=== PATIENT | female | born 1985 | race Hispanic/Latino ===

== ENCOUNTER 2018-12-31 14:06 | Inpatient (IN) | payer MEDICAID ==
[2018-12-31 15:17] LABS: BASO % 0.2 % (0.0-2.0); EOS % 0.3 % (0.0-4.0); HEMOGLOBIN 10.8 g/dL (11.0-16.0); LYMPH # 1.9 K/uL (1.0-4.3); LYMPH % 17.9 % (20.0-40.0); MEAN CELL VOLUME 84.1 fL (81.0-99.0); MEAN CORPUSCULAR HGB CONC 33.4 g/dL (33.0-37.0); MEAN PLATELET VOLUME 7.5 fL (7.2-11.7); MONO # 0.7 K/uL (0.0-0.8); MONO % 6.8 % (0.0-10.0); NEUT # 8.1 K/uL (1.8-7.0); NEUT % 74.8 % (50.0-75.0); RBC 3.84 Mil/uL (3.80-5.20); RED CELL DISTRIBUTION WIDTH 15.1 % (11.5-14.5); WHITE BLOOD COUNT 10.9 K/uL (4.8-10.8)
[2018-12-31 15:19] LABS: HCG,QUALITATIVE URINE NEGATIVE (NEGATIVE)
[2018-12-31 15:30] LABS: ALB/GLOB RATIO 1.1 (1.0-2.1); ALBUMIN 3.9 g/dL (3.5-5.0); ALT/SGPT 16 U/L (9-52); AST/SGOT 29 U/L (14-36); BLOOD UREA NITROGEN 22 mg/dL (7-17); CALCIUM 8.6 mg/dl (8.6-10.4); GFR NON-AFRICAN AMERICAN > 60
[2018-12-31 15:52] LABS: SQUAMOUS EPITHIAL < 1 /hpf (0-5); URINE BACTERIA RARE (<OCC)
[2018-12-31 15:53] LABS: URINE BILIRUBIN NEGATIVE (NEGATIVE); URINE CLARITY Clear (Clear); URINE COLOR YELLOW (YELLOW); URINE GLUCOSE (UA) NEGATIVE (Normal)
[2018-12-31 15:54] LABS: URINE BLOOD NEGATIVE (NEGATIVE); URINE LEUKOCYTE ESTERASE Negative Leu/uL (Negative); URINE PROTEIN NEGATIVE (NEGATIVE); URINE UROBILINOGEN 0.2 mg/dL (0.2-1.0)
[2018-12-31 15:56] LABS: BARBITURATES, UR NEGATIVE (NEGATIVE); BENZODIAZEPINES, UR NEGATIVE (NEGATIVE); PHENCYCLIDINE, UR NEGATIVE (NEGATIVE)
--- NOTE | 2018-12-31 16:11 | C.PDOC ---
History Of Present Illness 33 year old female presents to ED with request for detox from heroin and fentanyl.Patient states that she last used this morning. Patient has no medical complaints. Time Seen by Provider: 12/31/18 14:13 Chief Complaint (Nursing): Substance Abuse History Per: Patient History/Exam Limitations: no limitations Modifying Factor(s): Other (heroin and fentanyl) Additional History Per: Patient Past Medical History Reviewed: Historical Data, Nursing Documentation, Vital Signs Vital Signs: Last Vital Signs Temp 98 F 12/31/18 14:09 Pulse 95 H 12/31/18 14:09 Resp 16 12/31/18 14:09 BP 157/97 H 12/31/18 14:09 Pulse Ox 99 12/31/18 14:09 - Medical History PMH: No Chronic Diseases Surgical History: No Surg Hx Family History: States: Unknown Family Hx - Social History Hx Alcohol Use: No Hx Substance Use: Yes - Immunization History Hx Tetanus Toxoid Vaccination: No Hx Influenza Vaccination: No Hx Pneumococcal Vaccination: No Review Of Systems Constitutional: Negative for: Fever, Chills, Weakness Eyes: Negative for: Redness Cardiovascular: Negative for: Chest Pain, Palpitations Respiratory: Negative for: Cough, Shortness of Breath Gastrointestinal: Negative for: Nausea, Vomiting, Diarrhea Genitourinary: Negative for: Dysuria Musculoskeletal: Negative for: Back Pain Neurological: Negative for: Weakness, Numbness, Dizziness Physical Exam - Physical Exam Appears: Well, Non-toxic, No Acute Distress Skin: Normal Color, Warm, Dry Head: Atraumatic, Normacephalic Eye(s): bilateral: PERRL, EOMI Neck: Normal ROM, Supple Chest: Symmetrical, No Deformity Respiratory: No Decreased Breath Sounds Gastrointestinal/Abdominal: Soft, No Tenderness Extremity: Capillary Refill (<2 seconds) Extremity: Bilateral: Atraumatic, Normal Color And Temperature Pulses: Left Radial: Normal, Right Radial: Normal Neurological/Psych: Oriented x3, Normal Speech, Normal Cognition ED Course And Treatment - Laboratory Results Result Diagrams: 12/31/18 15:08 12/31/18 15:08 Lab Results: Total Bilirubin 0.2 mg/dL (0.2-1.3) 12/31/18 15:08 AST 29 U/L (14-36) 12/31/18 15:08 ALT 16 U/L (9-52) 12/31/18 15:08 Alkaline Phosphatase 86 U/L (38-126) 12/31/18 15:08 Total Protein 7.4 g/dL (6.3-8.3) 12/31/18 15:08 Albumin 3.9 g/dL (3.5-5.0) 12/31/18 15:08 Globulin 3.5 gm/dL (2.2-3.9) 12/31/18 15:08 Albumin/Globulin Ratio 1.1 (1.0-2.1) 12/31/18 15:08 Urine Color Yellow (YELLOW) 12/31/18 15:08 Urine Clarity Clear (Clear) 12/31/18 15:08 Urine pH 6.0 (5.0-8.0) 12/31/18 15:08 Ur Specific Crowder > 1.030 (1.003-1.030) H 12/31/18 15:08 Urine Protein Negative mg/dL (NEGATIVE) 12/31/18 15:08 Urine Glucose (UA) Negative mg/dL (Normal) 12/31/18 15:08 Urine Ketones Negative mg/dL (NEGATIVE) 12/31/18 15:08 Urine Blood Negative (NEGATIVE) 12/31/18 15:08 Urine Nitrate Negative (NEGATIVE) 12/31/18 15:08 Urine Bilirubin Negative (NEGATIVE) 12/31/18 15:08 Urine Urobilinogen 0.2 mg/dL (0.2-1.0) 12/31/18 15:08 Ur Leukocyte Esterase Negative Geoffrey/uL (Negative) 12/31/18 15:08 Urine WBC (Auto) 1 /hpf (0-5) 12/31/18 15:08 Urine RBC (Auto) 1 /hpf (0-3) 12/31/18 15:08 Ur Squamous Epith Cells < 1 /hpf (0-5) 12/31/18 15:08 Urine Bacteria Rare (<OCC) 12/31/18 15:08 Urine HCG, Qual Negative (NEGATIVE) 12/31/18 15:08 Urine HCG, Qual Negative (NEGATIVE) 12/31/18 15:08 O2 Sat by Pulse Oximetry: 99 (RA) Progress Note: Labs ordered. Pre-screening was done by mend worker. Patient is medically cleared and was accepted by to detox. Disposition - Disposition Disposition: HOSPITALIZED Disposition Time: 16:53 Condition: STABLE Forms: [facility] (Georgian) - Clinical Impression Clinical Impression: Drug dependence - PA / SAW FILER / Resident Statement MD/DO has reviewed & agrees with the documentation as recorded. (May Han) - Scribe Statement The provider has reviewed the documentation as recorded by the Scribe (May Han) All medical record entries made by the Scribe were at my direction and p ersonally dictated by me. I have reviewed the chart and agree that the record accurately reflects my personal performance of the history, physical exam, medical decision making, and the department course for this patient. I have also personally directed, reviewed, and agree with the discharge instructions and disposition. Decision To Admit - Pt Status Changed To: Hospital Disposition Of: Inpatient - Admit Certification Admit to Inpatient:: After my assessment, the patient will require hospitalization for at least two midnights. This is because of the severity of symptoms shown, intensity of services needed, and/or the medical risk in this patient being treated as an outpatient. - InPatient: Physician Admission Certification: I certify that this patient requires 2 or more midnights of care for the following reason:: Patient will need more than 2 days of hospitalization in Detox unit. - . Bed Request Type: Detox Admitting Physician: Rigoberto Hoffman Patient Diagnosis: Drug dependence
[2018-12-31 16:14] LABS: OPIATES, UR POSITIVE (NEGATIVE)
--- NOTE | 2018-12-31 18:24 | PCM.BM ---
<Luz Owens - Last Filed: 12/31/18 18:23> Treatment Plan Problems - Problems identified on initial assessmt Denial Date Initiated: 12/31/18 Time Initiated: 18:23 Assessment reference: NA Status: Active Defensive Coping Date Initiated: 12/31/18 Time Initiated: 18:23 Assessment reference: NA Status: Active Low motivation to change Date Initiated: 12/31/18 Time Initiated: 18:23 Assessment reference: NA Status: Active Treatment assets and liabiliti Patient Assests: ADL independent, negotiates basic needs, cognitively intact Patient Liabilities: substance abuse - Milieu Protocol Maintain good personal hygiene: daily Encourage regular showers, daily Remind patient to perform daily oral care, daily Assist patient to perform ADL's Conduct patient checks and document Observation sheet: Q15 minutes Maintain personal safety: every shift Educate patient to report safety concerns to staff, every shift Monitor environment for contraband/sharps Medication safety: Monitor for expected outcome, potential side effects: every shift, Assess barriers to learning: every shift, Assess readiness for medication education: every shift <Rigoberto Hoffman - Last Filed: 01/02/19 13:06> - Diagnosis (1) Opioid use disorder, severe, dependence Status: Acute Interventions: 01/02/19 13:07 * Assess 7x/week regarding severity of withdrawal * Educate regarding risks, benefits, side effects and alternatives of medications * Use Motivational Interviewing for abstinence * Use CBT for relapse prevention * Medication management for withdrawal symptoms * Encourage medication assisted treatment * <Milagro Uriostegui - Last Filed: 01/03/19 15:40> Family Contact Family involvement: Famliy/SO not involved - Goals for Treatment Patient goals for treatment: Complete detox and apply for short-term rehab program. Discharge/Continuing Care - Education Needs Education Needs: Patient Medication, Patient Diagnosis/Disease Process, Patient Coping Skills, Patient Anger Management skills, Patient Placement options, Patient Community resources, Patient Other ([facility] case involvement) - Discharge Discharge Criteria: No longer exhibiting s/s of withdrawal, Reduction of target symptoms Discharge to:: Home, With Family - Treatment Team Participation Patient/Family/SO Statement: 01/03/19 15:40 "I have to go to a 28-day program..." Discussed with Family/SO: No Was Patient/Family/SO present at Treatment Team Meeting: Yes
--- NOTE | 2019-01-01 13:29 | PCM.PSYCH ---
Initial Psychiatric Evaluation - Initial Psychiatric Evaluation Type of Admission: Voluntary Legal Status: Capacity Chief Complaint (in patient's own words): "Not good" History of Present Illness and Precipitating Events: Patient is a 33 year old female that is single, has no children, currently living with her father in a 2 person house, and hasn't worked for the last 4 years. She presented to the [facility] ED on 12/31 and was admitted to the [facility] detox unit for heroin and fentanyl detox. On examination, patient appears anxious but is open to questioning. She is currently feeling symptoms of withdrawal and could not sleep, commenting that she feels chills and has restless legs. She injects approximately 50 bags of heroin mixed with fentanyl daily for the last 4 years, with her longest period of sobriety being a year long in 2018. Patient also uses two 75mg fentanyl patches daily for the last two years. She also bought approximately 100mg of methadone off the street and used during the previous week. She last used both heroin and fentanyl on 12/31 prior to her admission to [facility]. She has previously been to detox once before where she was put on a codeine taper and has been placed on suboxone in the past. She has been to a rehabilitation center at [place] in [place] a little over a year ago. Patient denies alcohol use and smokes one pack per day for the last 5 years. He denies suicidal ideations, homicidal ideations, auditory hallucinations, and visual hallucinations. PMHx: Denies PsychHx: Depressed and anxious but not severe FMHx: Denies Medications: Clonidine, gabapentin 800 mg Allergies: NKDA Current Medications: Active Medications Generic Name Dose Route Start Last Admin Trade Name Jovanny PRN Reason Stop Dose Admin Clonidine HCl 0.1 mg 12/31/18 17:27 01/01/19 10:28 Catapres PO 0.1 mg Q6 PRN Administration opiate withdrawal Hydroxyzine HCl 50 mg 12/31/18 17:28 01/01/19 00:26 Atarax PO 50 mg Q6 PRN Administration Anxiety Methadone HCl 20 mg 01/01/19 10:00 01/01/19 09:17 Methadone PO 01/05/19 09:59 20 mg Q24H THERON Administration Taper Nicotine 1 patch 12/31/18 17:30 01/01/19 09:17 Nicoderm Cq TD 1 patch DAILY THERON Administration Trazodone HCl 50 mg 01/01/19 00:22 01/01/19 00:26 Desyrel PO 50 mg HS PRN Administration Insomnia Past Psychiatric History - Past Psychiatric History Pertinent Medical Hx (Current Medical&Sleep Prob, Allergies): Allergies Allergy/AdvReac Type Severity Reaction Status Date / Time No Known Allergies Allergy Verified 12/31/18 14:11 No Known Home Med 12/31/18 Review of Systems - Neurological Neurological: UNREMARKABLE - Psychiatric Psychiatric: Abnormal Sleep Pattern, Anhedonia, Anxiety, Change in Appetite, Depression, Difficulty Concentrating. absent: Homicidal Ideation, Suicidal Ideation Mental Status Examination - Personal Presentation Personal Presentation: Looks stated age - Affect Affect: Constricted - Motor Activity Motor Activity: Calm - Reliability in Providing Information Reliability in Providing Information: Good - Speech Speech: Organized - Mood Mood: Depressed, Anxious - Formal Thought Process Formal Thought Process: No Impairment - Cognitive Functions Orientation: Person, Place, Situation, Time Sensorium: Alert Attention/Concentration: Attentive Estimate of Intelligence: Average Judgement: Intact, as evidence by: Insight regarding need for hospitalization Memory: Recent intact, as evidence by: Ability to recall events of the day, Remote intact, as evidenced by: Abilit to recall sig. life events - Risk Risk: Withdrawal, Diminished functioning - Strength & Assets Inventory Strength & Assets Inventory: Cooperative - Limitations Limitations: Other DSM 5 DX - DSM 5 DSM 5 Diagnosis: Opioid withdrawal opioid use d/o - severe Depression, unspecified Cocaine use d/o - severe - Recommended/Plan of Treatment Treatment Recommendations and Plan of Treatment: Taper with Methadone Gabapentin for augmentation As needed medications All risks, benefits and alternatives of the meds discussed, and the pt agreed and understood. Attend groups and activities Supportive therapy and psychoeducation MT for abstinence CBT for relapse prevention Encourage MAT Refer to rehab or IOP, and self-help groups Teach healthy lifestyle methods, i.e. diet, exercise, meditation Smoking cessation with MT Nicotine patch if needed 35 min Projected ELOS: 5 days Prognosis: good w treatment - Smoking Cessation Smoking Cessation Initiated: Yes
[2019-01-02] MEDS ORDERED: Aluminum Hydroxide/Magnesium Hydroxide Susp (30 mL) PO PRN (11:57)
--- NOTE | 2019-01-02 13:06 | PCM.PYCHPN ---
Psychiatric Progress Note - Psychiatric Progress Note Patient seen today, length of contact: 17 min Patient Chief Complaint: "I am withdrawing bad" Problems Identified/Issues Discussed: The pt is seen, chart reviewed, case discussed with staff. Support and psychoeducation given, CBT and WI used briefly Still has wdw symptoms and uses clonidine a lot - risks discussed Additional methaodne given, as well as lorazepam and baclofen (rrefused flexeril) She is an AMA risk She needs more time to [facility] detox No SEs from medications, risks discussed. After care discussed Medication Change: Yes (detox changes daily) Medical Record Reviewed: Yes Mental Status Examination - Cognitive Function Orientation: Person, Place, Situation, Time Memory: Impaired Attention: Poor Concentration: Poor Association: WNL Fund of Knowledge: WNL - Mood Mood: Depressed, Anxious - Affect Affect: Constricted - Speech Speech: Appropriate - Formal Thought Process Formal Thought Process: No Impairment - Suicidal Ideation Suicidal Ideation: No - Homicidal Ideation Homicidal Ideation: No Goal/Treatment Plan - Goal/Treatment Plan Need for Continued Stay: Discharge may exacerbated symptoms, Severe functional impairment Progress Toward Problem(s) and Goals/Treatment Plan: Taper with Methadone - dose adjusted Add baclofen, lorazepam, increase clonidine Gabapentin for augmentation As needed medications All risks, benefits and alternatives of the meds discussed, and the pt agreed and understood. Attend groups and activities Supportive therapy and psychoeducation WI for abstinence CBT for relapse prevention Encourage MAT Refer to rehab or IOP, and self-help groups Teach healthy lifestyle methods, i.e. diet, exercise, meditation Smoking cessation with [place] Nicotine patch if needed Estimated Date of D/C: 01/05/19
[2019-01-03 11:19] VITALS: RESP 18
--- NOTE | 2019-01-03 14:32 | PCM.PYCHPN ---
Psychiatric Progress Note - Psychiatric Progress Note Patient seen today, length of contact: 15 min Patient Chief Complaint: "I am withdrawing bad" Problems Identified/Issues Discussed: The pt is seen, chart reviewed, case discussed with staff. Support and psychoeducation given, CBT and GA used briefly Still has wdw symptoms and uses clonidine a lot - risks discussed Additional methaodne given, as well as lorazepam and baclofen (rrefused flexeril) She is an AMA risk She needs more time to [facility] detox No SEs from medications, risks discussed. After care discussed Medication Change: Yes (detox changes daily) Medical Record Reviewed: Yes Mental Status Examination - Cognitive Function Orientation: Person, Place, Situation, Time Memory: Impaired Attention: Poor Concentration: Poor Association: WNL Fund of Knowledge: WNL - Mood Mood: Depressed, Anxious - Affect Affect: Constricted - Speech Speech: Appropriate - Formal Thought Process Formal Thought Process: No Impairment - Suicidal Ideation Suicidal Ideation: No - Homicidal Ideation Homicidal Ideation: No Goal/Treatment Plan - Goal/Treatment Plan Need for Continued Stay: Discharge may exacerbated symptoms, Severe functional impairment Progress Toward Problem(s) and Goals/Treatment Plan: Taper with Methadone - dose adjusted Add baclofen, lorazepam, increase clonidine Gabapentin for augmentation As needed medications All risks, benefits and alternatives of the meds discussed, and the pt agreed and understood. Attend groups and activities Supportive therapy and psychoeducation GA for abstinence CBT for relapse prevention Encourage MAT Refer to rehab or IOP, and self-help groups Teach healthy lifestyle methods, i.e. diet, exercise, meditation Smoking cessation with GA Nicotine patch if needed Estimated Date of D/C: 01/05/19
[2019-01-03 21:41] VITALS: PULSE 89; TEMP 98.6; O2SAT 97
[2019-01-03 22:34] VITALS: BP 105/65
--- NOTE | 2019-01-04 21:29 | PCM.PYCHDC ---
Mental Status Examination - Mental Status Examination Orientation: Person Discharge Summary - Discharge Note Consultations:: List each consultation separately and include: 1. Reason for request. 2. Findings. 3. Follow-up Summary of Hospital Course include:: 1. Description of specific treatment plan utilized for patients during their course of treatmen. 2. Summarize the time- course for resolution of acute symptoms and/or regressed behaviors. 3. Describe issues identified and worked on during hospitalization. 4. Describe medication utilized. 5. Describe medical problems identified and treated. 6. Reassessment of suicide risk Summary of Hospital Course: Patient is a 33 year old female that is single, has no children, currently living with her father in a 2 person house, and hasn't worked for the last 4 years. She presented to the [facility] ED on 12/31 and was admitted to the [facility] detox unit for heroin and fentanyl detox. On examination, patient appears anxious but is o pen to questioning. She is currently feeling symptoms of withdrawal and could not sleep, commenting that she feels chills and has restless legs. She injects approximately 50 bags of heroin mixed with fentanyl daily for the last 4 years, with her longest period of sobriety being a year long in 2018. Patient also uses two 75mg fentanyl patches daily for the last two years. She also bought approximately 100mg of methadone off the street and used during the previous week. She last used both heroin and fentanyl on 12/31 prior to her admission to [facility]. She has previously been to detox once before where she was put on a codeine taper and has been placed on suboxone in the past. She has been to a rehabilitation center at [place] in [place] a little over a year ago. Patient denies alcohol use and smokes one pack per day for the last 5 years. He denies suicidal ideations, homicidal ideations, auditory hallucinations, and visual hallucinations. PMHx: Denies PsychHx: Depressed and anxious but not severe FMHx: Denies Medications: Clonidine, gabapentin 800 mg Allergies: NKDA - Diagnosis (1) Opioid use disorder, severe, dependence Status: Acute - Final Diagnosis (DSM 5) Condition upon Discharge: STABLE Disposition: AGAINST MEDICAL ADVICE Follow-up Treatment Plan: Taper with Methadone - dose adjusted Add baclofen, lorazepam, increase clonidine Gabapentin for augmentation As needed medications All risks, benefits and alternatives of the meds discussed, and the pt agreed and understood. Attend groups and activities Supportive therapy and psychoeducation [place] for abstinence CBT for relapse prevention Encourage MAT Refer to rehab or IOP, and self-help groups Teach healthy lifestyle methods, i.e. diet, exercise, meditation Smoking cessation with [place] Nicotine patch if needed
== END 2019-01-03 22:40 | disposition left against medical advice (07) | DRG 743 ==
LOC: C.ER 14:06 → C.7D 16:51
PROVIDERS: ADMIT Psychiatry & Neurology Psychiatry; ATTEND Psychiatry & Neurology Psychiatry
PROC: HZ2ZZZZ Detoxification Services for Substance Abuse Treatment (ICD-10-PCS; principal; 2018-12-31)
PROC: HZ59ZZZ Individual Psychotherapy for Substance Abuse Treatment, Supportive (ICD-10-PCS; 2018-12-31)
PROC: HZ46ZZZ Group Counseling for Substance Abuse Treatment, Psychoeducation (ICD-10-PCS; 2018-12-31)
PROC: GZ3ZZZZ Medication Management (ICD-10-PCS; 2018-12-31)
DX: F11.23 Opioid dependence with withdrawal (principal); F14.90 Cocaine use, unspecified, uncomplicated; F32.9 Major depressive disorder, single episode, unspecified; F17.210 Nicotine dependence, cigarettes, uncomplicated